=== PATIENT | female | born 1970 | race African-American/Black ===

== ENCOUNTER 2018-03-10 21:19 | Inpatient (IN) | payer MEDICARE, OTHER ==
[~2018-03-10 21:19] MED LIST: ISOVUE-370 76%-LOCM 1 ML ONE
[2018-03-10 21:49] LABS: BHCG - Serum Negative (NEGATIVE); Pregs Control Background? CLEAR/WHITE (CLR/WHITE); Pregs Control Bar Appear? YES (CONTROL BAR)
[2018-03-10 21:51] LABS: Hemoglobin 7.8 g/dL (12.0-16.0); Mean Corpuscular HGB CONC 30.6 g/dL (32.0-36.0); Mean Corpuscular Hemoglobin 18.1 pg (27.0-31.0); Mean Corpuscular Volume 59.1 fl (81.0-99.0); Mean Platelet Volume 5.8 fL (7.4-10.4); Platelet Count 472 thou/uL (130-400); RBC Distribution Width 19.1 % (11.5-14.5); Red Blood Cell (RBC) Count 4.34 mill/uL (4.20-5.40); White Blood Cell (WBC) Count 20.9 thou/uL (4.8-10.8)
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
[2018-03-10 22:08] LABS: ALT (SGPT) 11 U/L (8-55); AST (SGOT) 29 U/L (5-34); Albumin 4.4 g/dL (3.5-5.0); Alkaline Phosphatase 61 U/L (40-150); Anion Gap 17 mmol/L (10-20); BUN (Urea Nitrogen) 9 mg/dL (7.0-18.7); Bilirubin, Total 0.4 mg/dL (0.2-1.2); CK (CPK) 1667 U/L (29-168); Calc. Creatinine Clearance 0 mL/min (70-130); Calcium 9.6 mg/dL (7.8-10.44); Carbon Dioxide 20 mmol/L (22-29); Chloride 103 mmol/L (98-107); Estimated GFR-MDRD Greater than 90; Globulin 4.6 g/dL (2.4-3.5); Glucose 128 mg/dL (70-105); Potassium 3.3 mmol/L (3.5-5.1); Sodium 137 mmol/L (136-145)
[2018-03-10] MEDS ORDERED: Morphine 4 MG/ML VIAL ONE (22:16)
[2018-03-10] MEDS ORDERED: Ketorolac Tromethamine 30 MG/ML VIAL ONE (22:16)
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
[2018-03-10 22:58] LABS: Anisocytosis SLIGHT = 6-15 cells (100X) (0-5/hpf); Band 10 % (5-11); Elliptocytes SLIGHT = 2-5 cells (100X) (0-1/hpf); Lymphocytes 11 % (21-51); MDiff Complete? YES; Monocytes 1 % (0-10); Neutrophil 78 % (42-75); Reflex for Review?? YES
[2018-03-10] MEDS ORDERED: Ondansetron ODT 4 MG TAB PO PRN (22:59)
[2018-03-10] MEDS ORDERED: Dextrose 50% Abboject 50 ML SYRINGE SLOW IVP PRN (22:59)
[2018-03-10] MEDS ORDERED: Cyclobenzaprine 10 MG TAB PO PRN (22:59)
[2018-03-10] MEDS ORDERED: Dextrose 5% in Water 1,000 ML IV PRN (22:59)
[2018-03-10] MEDS ORDERED: Ondansetron HCl/PF 4 MG/2 ML Vial IVP PRN (22:59)
[2018-03-10] MEDS ORDERED: traMADol HCl 50 MG TAB PO PRN (23:01)
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
[2018-03-10] MEDS ORDERED: Cyclobenzaprine 10 MG TAB ONE (23:24)
[2018-03-10 23:39] LABS: Microcytosis SLIGHT = 6-15 cells (100X) (0-5/hpf)
[2018-03-10] MEDS ORDERED: Acetaminophen 500 MG TAB PO SCH (23:59)
[2018-03-10] MEDS ORDERED: traMADol HCl 50 MG TAB PO SCH (23:59)
[2018-03-11 03:06] LABS: Hemoglobin 7.1 g/dL (12.0-16.0); Mean Corpuscular HGB CONC 30.6 g/dL (32.0-36.0); Mean Corpuscular Volume 58.8 fl (81.0-99.0); RBC Distribution Width 19.2 % (11.5-14.5); Red Blood Cell (RBC) Count 3.93 mill/uL (4.20-5.40); White Blood Cell (WBC) Count 12.9 thou/uL (4.8-10.8)
[2018-03-11] MEDS ORDERED: Acetaminophen 500 MG TAB PO SCH (03:15)
[2018-03-11] MEDS ORDERED: traMADol HCl 50 MG TAB PO SCH (03:15)
[2018-03-11 03:23] LABS: Lactic Acid 1.6 mmol/L (0.5-2.2)
[2018-03-11 03:30] LABS: #Lymphocytes 0.6 thou/uL (1.20-3.40); #Monocytes 0.5 thou/uL (0.11-0.59); #Neutrophils 11.7 thou/uL (1.40-6.50); %Basophils 0.1 % (0.0-1.0); %Eosinophils 0.1 % (0.0-10.0); %Lymphocytes 4.7 % (21.0-51.0); %Monocytes 3.9 % (0.0-10.0); %Neutrophils 91.3 % (42.0-75.0); Anisocytosis SLIGHT = 6-15 cells (100X) (0-5/hpf); Elliptocytes SLIGHT = 2-5 cells (100X) (0-1/hpf); Hypochromia SLIGHT = 6-15 cells (100X) (0-5/hpf); MDiff Complete? YES; Mean Platelet Volume 6.5 fL (7.4-10.4); PLT Morphology Comment Appears Adequate; Platelet Count 379 thou/uL (130-400)
[2018-03-11 03:41] LABS: Anion Gap 14 mmol/L (10-20); BUN (Urea Nitrogen) 7 mg/dL (7.0-18.7); CK (CPK) 2502 U/L (29-168); Calc. Creatinine Clearance 0 mL/min (70-130); Calcium 8.8 mg/dL (7.8-10.44); Carbon Dioxide 23 mmol/L (22-29); Chloride 104 mmol/L (98-107); Estimated GFR-MDRD Greater than 90; Glucose 120 mg/dL (70-105); Magnesium 1.6 mg/dL (1.6-2.6); Phosphorus 2.2 mg/dL (2.3-4.7); Potassium 3.5 mmol/L (3.5-5.1); Sodium 137 mmol/L (136-145)
[2018-03-11 04:09] VITALS: BMI 22.6
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
[2018-03-11] MEDS ORDERED: Dextrose 5% in Water 1,000 ML IV SCH (08:00)
[2018-03-11] MEDS: Sodium Chloride 0.9% 1,000 ML IV SCH ×2 (08:00→15:06)
[2018-03-11 08:13] LABS: Iron 13 ug/dL (50-170); Iron Binding Capacity, Total 433 mcg/dL (265-497)
[2018-03-11 08:13] LABS: Iron 13 ug/dL (50-170); Iron Binding Capacity, Total 429 mcg/dL (265-497)
[2018-03-11] MEDS ORDERED: Thrombin 5000 UNITS/5 ML VIAL ONE (08:16)
[2018-03-11] MEDS ORDERED: Sodium Chloride 0.9% 10 ML ONE (08:20)
[2018-03-11 08:25] LABS: CKMB 23.1 ng/mL (0-6.6)
[2018-03-11] MEDS ORDERED: Potassium Phosphate 30 MMOL in Sodium Chloride 0.9% 500 ML IVPB SCH (08:30)
[2018-03-11] MEDS ORDERED: Magnesium Sulfate 3 GM in Sodium Chloride 0.9% 100 ML IVPB SCH (08:30)
[2018-03-11] MEDS ORDERED: CEFAZOLIN/Water 2 GM/20 ML SYRINGE ONE (08:55)
[2018-03-11] MEDS ORDERED: Fentanyl 250 MCG/5 ML VIAL ONE (08:57)
[2018-03-11] MEDS ORDERED: Famotidine/PF 20 mg/2ml Vial ONE (08:58)
[2018-03-11] MEDS ORDERED: Fentanyl 100 MCG/2 ML VIAL ONE (10:45)
[2018-03-11] MEDS: Ferrous Sulfate 325 MG TAB PO SCH ×2 (11:02→16:36)
[2018-03-11] MEDS: Acetaminophen 500 MG TAB PO SCH ×3 (11:04→20:57)
[2018-03-11] MEDS: Ascorbic Acid 500 mg Chewable Tablet PO SCH ×2 (11:04→20:58)
[2018-03-11] MEDS: traMADol HCl 50 MG TAB PO SCH ×3 (11:05→20:58)
[2018-03-11] MEDS ORDERED: Promethazine HCl 25 MG/ML VIAL IM PRN (12:02)
[2018-03-11] MEDS ORDERED: Promethazine HCl 25 MG/ML VIAL SLOW IVP PRN (12:02)
[2018-03-11] MEDS ORDERED: Ondansetron HCl/PF 4 MG/2 ML Vial IVP PRN (12:02)
[2018-03-11] MEDS ORDERED: Morphine Sulfate 2 MG/ML SYRINGE SLOW IVP PRN (12:02)
[2018-03-11] MEDS ORDERED: CEFAZOLIN 1 GM in Sodium Chloride 0.9% 100 ML IVPB SCH (14:00)
[2018-03-11 14:04] LABS: INR-International Normal Ratio 1.3; PTT 26.5 SEC (22.9-36.1); Prothrombin Time 16.5 SEC (12.0-14.7)
[2018-03-11] MEDS: CEFAZOLIN 1 GM, Syringe 2.5 ML in Sterile Water 7.5 ML SLOW IVP SCH (16:36)
[2018-03-11] MEDS ORDERED: Dexamethasone 20 MG/5 ML VIAL ONE (16:49)
[2018-03-11] MEDS ORDERED: ePHEDrine/0.9% NaCl/PF SYRINGE 50 mg/10 ml ONE (16:49)
[2018-03-11] MEDS ORDERED: PROPOFOL 200 MG/20 ML VIAL ONE (16:49)
[2018-03-11] MEDS ORDERED: Glycopyrrolate 0.2 MG/ML 5 ML SYRINGE ONE (16:49)
[2018-03-11] MEDS ORDERED: Lidocaine 1% PF 5 ML VIAL ONE (16:49)
[2018-03-11] MEDS ORDERED: Ketorolac Tromethamine 30 MG/ML VIAL ONE (16:49)
[2018-03-11] MEDS ORDERED: diphenhydrAMINE 50 MG/ML VIAL ONE (16:49)
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
[2018-03-12] MEDS: Sodium Chloride 0.9% 1,000 ML IV SCH ×3 (00:22→16:35)
[2018-03-12] MEDS: CEFAZOLIN 1 GM, Syringe 2.5 ML in Sterile Water 7.5 ML SLOW IVP SCH ×3 (00:28→16:33)
[2018-03-12] MEDS: Acetaminophen 500 MG TAB PO SCH ×4 (03:37→20:27)
[2018-03-12] MEDS: traMADol HCl 50 MG TAB PO SCH ×4 (03:37→20:27)
[2018-03-12 05:54] LABS: Anion Gap 12 mmol/L (10-20); BUN (Urea Nitrogen) 6 mg/dL (7.0-18.7); CK (CPK) 2257 U/L (29-168); Calc. Creatinine Clearance 94 mL/min (70-130); Calcium 8.3 mg/dL (7.8-10.44); Carbon Dioxide 23 mmol/L (22-29); Chloride 106 mmol/L (98-107); Estimated GFR-MDRD Greater than 90; Glucose 92 mg/dL (70-105); Magnesium 2.2 mg/dL (1.6-2.6); Phosphorus 2.2 mg/dL (2.3-4.7); Potassium 3.6 mmol/L (3.5-5.1); Sodium 137 mmol/L (136-145)
[2018-03-12 06:20] LABS: #Lymphocytes 0.9 thou/uL (1.20-3.40); #Monocytes 0.9 thou/uL (0.11-0.59); %Basophils 0.2 % (0.0-1.0); %Eosinophils 0.1 % (0.0-10.0); %Lymphocytes 9.2 % (21.0-51.0); %Monocytes 9.5 % (0.0-10.0); Anisocytosis SLIGHT = 6-15 cells (100X) (0-5/hpf); Elliptocytes SLIGHT = 2-5 cells (100X) (0-1/hpf); Hemoglobin 6.3 g/dL (12.0-16.0); Hypochromia SLIGHT = 6-15 cells (100X) (0-5/hpf); MDiff Complete? YES; Mean Corpuscular HGB CONC 30.4 g/dL (32.0-36.0); Mean Corpuscular Hemoglobin 18.2 pg (27.0-31.0); Mean Corpuscular Volume 59.9 fl (81.0-99.0); Mean Platelet Volume 6.7 fL (7.4-10.4); Microcytosis MODERATE=15-30 cells (100X) (0-5/hpf); Platelet Count 351 thou/uL (130-400); RBC Distribution Width 18.9 % (11.5-14.5); Red Blood Cell (RBC) Count 3.46 mill/uL (4.20-5.40); White Blood Cell (WBC) Count 9.9 thou/uL (4.8-10.8)
--- NOTE | 2018-03-12 09:01 | PRG ---
DATE OF SERVICE: 03/12/2018 SUBJECTIVE: Ms. Rees is postoperative day 1 from C6-C7 fracture dislocation repair with spinal cord injury. She states this morning she feels as if her neck pain has improved. She moves all 4 extrem ities antigravity. She moves her right side with more vigor compared to before surgery. I suspect s he has some component of myelopathy, but certainly this appears to be improved compared to preoperati vely. We will mobilize her today with physiatry and plan for inpatient rehabilitation hopefully. Fr om a metabolic standpoint, her hemoglobin is 6.3. She has chronic anemia and presented with hemoglob in of 7.8. We will give her 2 units of blood. Hopefully, this will improve in any orthostasis that patient may demonstrate.
[2018-03-12] MEDS: Ascorbic Acid 500 mg Chewable Tablet PO SCH ×3 (09:16→20:27)
[2018-03-12] MEDS: Ferrous Sulfate 325 MG TAB PO SCH ×2 (09:16→17:59)
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
[2018-03-12] MEDS ORDERED: Dexamethasone 4 MG in Sodium Chloride 0.9% 50 ML IVPB SCH (16:00)
[2018-03-12] MEDS: Dexamethasone 4 MG in Sodium Chloride 0.9% 50 ML IVPB SCH (18:16)
[2018-03-12 19:22] LABS: Reticulocyte Count 1.9 % (0.5-1.5)
[2018-03-12 19:40] LABS: Iron 21 ug/dL (50-170); Iron Binding Capacity, Total 359 mcg/dL (265-497)
--- NOTE | 2018-03-12 23:17 | OP ---
OR: 12. WOUND TYPE: Type 1 wound. SURGEON: Dr. Jurgen Harper. CLAM SHUCKER: Roe Phillips PA-C. Modifier 57 should be added to the surgery as my decision to operate was made on the day I saw the lawrence addison. PREPROCEDURE DIAGNOSES: Traumatic disruptions at C6-C7 with spinal cord compression in C7 fracture. POSTPROCEDURE DIAGNOSES: Traumatic disruptions at C6-C7 with spinal cord compression in C7 fracture. PROCEDURES: 1. Anterior C6-C7 diskectomy for decompression of spinal cord with preparation of the endplate and p lacement of interbody spacer packed with allograft for arthrodesis. 2. Placement of anterior cervical plate and screw fixation, C6-C7. 3. Use of operative microscope for microdissection. 4. Stabilization of cervical spine fracture. PROCEDURE IN DETAIL: After informed consent was obtained from patient, patient brought to OR 12. Pr oper patient pause and identification was carried out. She was placed under excellent endotracheal a nesthesia and maintaining cervical spine precautions. We identified a right anterior oblique annette. Right anterior neck to allow for approach to C6-C7 segment with disk disruption was obvious. This re gion was sterilely cleansed, prepared, and draped. Proper patient pause and identification was marcelino ed out. The wound was then opened with a combination of sharp, monopolar, and blunt dissection proce eded lateral to the tracheoesophageal bundle and medial to the right carotid sheath. There was signi ficant prevertebral edema as expected along with hematoma. We identified this disrupted disk segment at C6-C7 and the retrolisthesis of C6-C7. Retractors were placed and the microscope was brought in, distraction then occurred at C6-C7 and extruded disk material was quite obvious as it herniated vent rally distraction, this also resulted in satisfactory alignment of the vertebral bodies. The d isc was then removed all the way back to the dural tube. There was a very mild amount of thinning of the dura with a fractured portion of the endplate had been eroded into the dura due to the fracture. This weeped a small amount of CSF, although this stopped on its own and it was very difficult to id entify the true source of the CSF leak, but I conceded that is very likely small, as it stopped on it s own. I was satisfied again with a decompression of the cord and the C7 nerve roots in the alignmen t, and I was able to remove large pieces of disk from behind the C7 vertebral body. I then placed an interbody spacer with appropriate dimension, packed with allograft at the C6-C7 disk space and relea sed the distraction. The microscope was then removed and anterior cervical plate was affixed to the cervical spine. The final tightening occurred with satisfactory alignment of the C6-C7 segments. Co pious irrigation occurred throughout has been maximized in hemostasis. A small amount of DuraSeal th en placed in the region of where, I identified the leak although I saw no more CSF. A Valsalva maneu albertina was performed as well and again I saw no CSF egress. Again, I assured final tightening and follo wing this, meticulous hemostasis was completed. The wound was closed in anatomical layers over a davida in. The patient then emerged from anesthesia and we kept her in the cervical collar.
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
[2018-03-13] MEDS: CEFAZOLIN 1 GM, Syringe 2.5 ML in Sterile Water 7.5 ML SLOW IVP SCH ×2 (00:13→09:56)
[2018-03-13] MEDS: Sodium Chloride 0.9% 1,000 ML IV SCH ×3 (00:13→09:57)
[2018-03-13] MEDS: Dexamethasone 4 MG in Sodium Chloride 0.9% 50 ML IVPB SCH ×2 (01:38→09:56)
[2018-03-13] MEDS: traMADol HCl 50 MG TAB PO SCH ×2 (02:48→08:32)
[2018-03-13] MEDS: Acetaminophen 500 MG TAB PO SCH ×2 (02:48→08:32)
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
[2018-03-13 06:36] LABS: #Lymphocytes 0.6 thou/uL (1.20-3.40); #Monocytes 0.3 thou/uL (0.11-0.59); #Neutrophils 12.9 thou/uL (1.40-6.50); %Basophils 0.1 % (0.0-1.0); %Eosinophils 0.2 % (0.0-10.0); %Monocytes 1.9 % (0.0-10.0); %Neutrophils 93.8 % (42.0-75.0); Anisocytosis MODERATE=16-30 cells (100X) (0-5/hpf); Hemoglobin 9.3 g/dL (12.0-16.0); MDiff Complete? YES; Mean Corpuscular HGB CONC 31.5 g/dL (32.0-36.0); Mean Corpuscular Hemoglobin 20.6 pg (27.0-31.0); Mean Corpuscular Volume 65.5 fl (81.0-99.0); Mean Platelet Volume 6.5 fL (7.4-10.4); PLT Morphology Comment Appears Adequate; Platelet Count 368 thou/uL (130-400); Red Blood Cell (RBC) Count 4.51 mill/uL (4.20-5.40); White Blood Cell (WBC) Count 13.8 thou/uL (4.8-10.8)
[2018-03-13 08:09] LABS: Anion Gap 15 mmol/L (10-20); BUN (Urea Nitrogen) 7 mg/dL (7.0-18.7); CK (CPK) 1141 U/L (29-168); Calc. Creatinine Clearance 104 mL/min (70-130); Calcium 8.7 mg/dL (7.8-10.44); Carbon Dioxide 20 mmol/L (22-29); Chloride 103 mmol/L (98-107); Estimated GFR-MDRD Greater than 90; Glucose 108 mg/dL (70-105); Magnesium 2.1 mg/dL (1.6-2.6); Phosphorus 2.4 mg/dL (2.3-4.7); Potassium 3.9 mmol/L (3.5-5.1); Sodium 134 mmol/L (136-145)
[2018-03-13] MEDS: Ascorbic Acid 500 mg Chewable Tablet PO SCH ×2 (08:31→08:37)
[2018-03-13] MEDS: Ferrous Sulfate 325 MG TAB PO SCH (08:32)
[2018-03-13] MEDS ORDERED: Docusate 100 MG CAP PO SCH (09:00)
[2018-03-13] MEDS ORDERED: Polyethylene Glycol 3350 17 GM Packet PO SCH (09:00)
[2018-03-13 12:18] VITALS: BP 149/83; TEMP 98.5
--- NOTE | 2018-03-13 12:44 | PRG ---
DATE OF SERVICE: 03/13/2018 Ms. Rees is postoperative day 2 from C6-C7 fracture dislocation repair. She is moving her extremiti es symmetrically and appears to be doing very well this morning. She states her neck pain has certai nly improved compared to before surgery. Her drain output has been 0. Her dressing is dry. We will plan for dismissal today likely with a followup in a couple weeks in my clinic to check the wound.
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
== END 2018-03-13 13:25 | disposition home or self-care (01) | DRG 29 ==
LOC: ERS 21:19 → SURG B 22:59 → OBSVTOIN 03-12 13:47
PROVIDERS: ADMIT Surgery; ATTEND Surgery
PROC: 0RT30ZZ Resection of Cervical Vertebral Disc, Open Approach (ICD-10-PCS; principal; 2018-03-12)
PROC: 0RG10K0 Fusion of Cervical Vertebral Joint with Nonautologous Tissue Substitute, Anterior Approach, Anterior Column, Open Approach (ICD-10-PCS; 2018-03-12)
PROC: 30233N1 Transfusion of Nonautologous Red Blood Cells into Peripheral Vein, Percutaneous Approach (ICD-10-PCS; 2018-03-12)
DX: S14.106A Unspecified injury at C6 level of cervical spinal cord, initial encounter (principal); G96.0 Cerebrospinal fluid leak; E83.39 Other disorders of phosphorus metabolism; S12.500A Unspecified displaced fracture of sixth cervical vertebra, initial encounter for closed fracture; S12.600A Unspecified displaced fracture of seventh cervical vertebra, initial encounter for closed fracture; S14.107A Unspecified injury at C7 level of cervical spinal cord, initial encounter; S14.0XXA Concussion and edema of cervical spinal cord, initial encounter; D72.829 Elevated white blood cell count, unspecified; D50.9 Iron deficiency anemia, unspecified; R94.4 Abnormal results of kidney function studies; E87.6 Hypokalemia; M62.838 Other muscle spasm
CPT/HCPCS: 36415; 36430; 70450; 71045; 71260; 72125; 72141; 74177; 76001; 80048; 80053; 82550; 82553; 82728; 83540; 83550; 83605; 83735; 84100; 84703; 85025; 85046; 85060; 85610; 85730; 86850; 86900; 86901; 93005; 96361; 96374; 96375; A4216; C1713; C1776; G0390; G8978-GP-CI; G8979-GP-CI; G8980-GP-CI; J0131; J0690; J1100; J1200; J1885; J2001; J2270; J2704; J3010; J3475; J3490; J7050; L0174; L0200; P9016; Q0162; S0028

== ENCOUNTER 2018-05-09 14:30 | Outpatient (CLI) | payer MEDICARE, MEDICAID ==
--- NOTE | 2018-05-09 15:32 | RAD ---
FOUR VIEWS CERVICAL SPINE: Date: 05-09-18 Comparison: CT cervical spine, 03-10-18. History: Re-evaluate cervical spine following surgery. FINDINGS: Prior CT examination demonstrated multiple cervical spine fractures at the C6 and C7 levels. Anterior discectomy and fusion hardware is present at the C6-7 level. There is an intervertebral disc device at the C6-7 level. At C4-5 there is disc space narrowing, degenerative endplate change and anterior osteophyte formation . No evidence for hardware failure. Evaluation of the C6 and C7 fractures is limited on this examination and could be better assessed on follow up CT. Open mouth odontoid view demonstrates a normal appearing dens and C1-2 articulation. No prevertebral soft tissue swelling. IMPRESSION: Degenerative and post-operative changes of the cervical spine as detailed above. POS: [facility]
== END 2018-05-09 14:31 | disposition home or self-care (01) ==
LOC: TBSIIMAG 14:30
PROVIDERS: ATTEND Surgery
DX: S12.9XXA Fracture of neck, unspecified, initial encounter (principal); M47.892 Other spondylosis, cervical region; Z98.890 Other specified postprocedural states
CPT/HCPCS: 72040

== ENCOUNTER 2018-05-22 00:51 | Inpatient (IN) | payer MEDICARE, MEDICAID ==
[2018-05-22] MEDS ORDERED: Ondansetron ODT 4 MG TAB SL PRN (02:42)
[2018-05-22] MEDS ORDERED: Acetaminophen 325 MG TAB PO PRN (02:42)
[2018-05-22] MEDS ORDERED: Ondansetron HCl/PF 4 MG/2 ML Vial IVP PRN ×2 (02:42→09:29)
[2018-05-22 03:25] VITALS: BMI 21.2
[2018-05-22] MEDS: Piperacillin/Tazobactam 3.375 GM in Sodium Chloride 0.9% 100 ML IVPB SCH ×2 (03:36→09:00)
[2018-05-22] MEDS: Sodium Chloride 0.9% 1,000 ML IV SCH ×2 (03:36→13:48)
--- NOTE | 2018-05-22 04:53 | HP ---
CHIEF COMPLAINT: Abdominal pain. HISTORY OF PRESENT ILLNESS: Ms. Rees is a 48-year-old woman who presented to the emergency room wit h a 2-day history of abdominal pain. She was initially seen at an outside emergency room where initi al evaluation and imaging was performed. Her labs were unremarkable, but CT revealed small bowel obs truction due to an umbilical hernia. Attempts by the ER physician to reduce this were unsuccessful a nd she was transferred here for surgical evaluation. The patient states that the pain in her abdomen is centered on her umbilicus, nothing that she has tried at home has relieved it. She has thrown up multiple times, but has not seen any blood. She has not had any fevers or chills. An NG tube was p laced prior to my arrival, but she is still nauseated. PAST MEDICAL HISTORY: None. PAST SURGICAL HISTORY: , tubal , and cervical fixation of a spinal fracture in Feb. MEDICATIONS: She takes no medications as an outpatient. ALLERGIES: No known drug allergies. SOCIAL HISTORY: She does not smoke, drink, or use illicit drugs. REVIEW OF SYSTEMS: Ten-system review of systems is negative except per HPI. PHYSICAL EXAMINATION: VITAL SIGNS: Temperature 97.9, heart rate 78, respirations 18, 99% saturated on room air, blood pres sure 115/90. GENERAL: Reveals an ill-appearing woman holding an emesis basin and retching intermittently. She grier s an NG tube in place which has light green fluid in the tubing. HEENT: Unremarkable. NECK: Supple, without lymphadenopathy or thyroid nodules. She has a healed cervical incision on the right anterior aspect. HEART: Regular in its rate and rhythm without murmurs, rubs, or gallops. LUNGS: Clear to auscultation bilaterally. ABDOMEN: Very tender at the umbilicus with a firm hernia with gentle pressure. This hernia was able to be completely reduced into the abdomen, at which time the patient expressed significant relief of her abdominal pain. She is otherwise nontender in the abdomen and does not have any signs of perito nitis. No rigidity, rebound, or guarding. No palpable masses. She has a healed lower midline incis ion extending to above the level of the umbilicus, but no other hernias are palpable. EXTREMITIES: Warm and well perfused with normal pulses and no edema. NEUROLOGIC: No focal deficits. PSYCHIATRIC: Alert, oriented, and answers questions appropriately. X-RAY FINDINGS: CT images are not available since I was unable to open the disk, but the written rep ort is as per HPI. ASSESSMENT: Bowel obstruction due to umbilical hernia which was able to be successfully reduced at t he bedside. The patient expressed immediate relief of her abdominal pain and nausea and would leave her on bed rest and bowel rest today and likely take her to the operating room later today for a lapa roscopic repair of ventral incisional hernia. Inherent risks of ventral incisional hernia repair wit h mesh were discussed with the patient. These include, but are not limited to bleeding, infection, r isks of anesthesia, damage to nearby structures including bowel and blood vessels, need for additiona l procedures or open repair mesh infection, requiring mesh explantation and recurrence of hernia. Romero karen understands and accepts these risks and wishes to proceed. All of her questions were answered.
[2018-05-22] MEDS ORDERED: Bupivacaine HCl 0.25%/Epi 0.0005/PF 10 ML VIAL FS ONE (08:24)
[2018-05-22] MEDS ORDERED: Midazolam HCl 2 mg/2 ml Vial ONE (08:37)
[2018-05-22] MEDS ORDERED: Fentanyl 250 MCG/5 ML VIAL ONE (08:37)
[2018-05-22] MEDS ORDERED: Promethazine HCl 25 MG/ML VIAL IM PRN (09:29)
[2018-05-22] MEDS ORDERED: Promethazine HCl 25 MG/ML VIAL SLOW IVP PRN (09:29)
--- NOTE | 2018-05-22 09:48 | RAD ---
ABDOMEN ONE VIEW: History: Nasogastric tube placement. Small bowel obstruction. FINDINGS: Nondilated gas filled loops of small and large bowel throughout the abdomen are apparent. Nasogastric tube is coiled over the gastric fundus. Contrast within the urinary bladder is likely related to rec ent imaging. IMPRESSION: Nasogastric tube coiled over the gastric fundus. Perhaps advancing the catheter approximately 5-10 cm would result in better position within the gastric antrum and body. Nonspecific bowel gas pattern. POS: [facility]
[2018-05-22] MEDS ORDERED: Acetaminophen 1,000 MG in Premix Bag 1 BAG IVPB PRN (11:28)
[2018-05-22] MEDS ORDERED: Ketorolac Tromethamine 30 MG/ML VIAL IVP PRN (11:28)
[2018-05-22] MEDS ORDERED: HYDROcodone/Acetaminophen 5/325 mg Tablet PO PRN ×2 (11:30)
[2018-05-22] MEDS ORDERED: traMADol HCl 50 MG TAB PO PRN ×2 (11:31)
[2018-05-22] MEDS ORDERED: Ondansetron HCl/PF 4 MG/2 ML Vial SLOW IVP PRN (11:33)
[2018-05-22] MEDS ORDERED: Ketorolac Tromethamine 30 MG/ML VIAL ONE (12:56)
[2018-05-22] MEDS ORDERED: PHENYLEPHRINE-NS 100 MCG/ML 10 ML SYRINGE ONE (12:56)
[2018-05-22] MEDS ORDERED: Lidocaine 1% PF 5 ML VIAL ONE (12:56)
[2018-05-22] MEDS ORDERED: Ondansetron HCl/PF 4 MG/2 ML Vial ONE (12:56)
[2018-05-22] MEDS ORDERED: Succinylcholine Chloride 20 MG/ML 10 ml SYRINGE FS ONE (12:56)
[2018-05-22] MEDS ORDERED: Dexamethasone 20 MG/5 ML VIAL ONE (12:56)
[2018-05-22] MEDS ORDERED: PROPOFOL 200 MG/20 ML VIAL ONE (12:56)
[2018-05-22] MEDS ORDERED: Glycopyrrolate 0.2 MG/ML 5 ML SYRINGE ONE (12:56)
[2018-05-22] MEDS: D5 1/2 NS w/20 mEq KCL 1,000 ML IV SCH ×2 (13:49→18:25)
[2018-05-22] MEDS: Piperacillin/Tazobactam 3.375 GM, Admixture Fee 1 EACH in Sodium Chloride 0.9% 100 ML IVPB SCH ×2 (15:00→21:01)
[2018-05-22] MEDS: Famotidine/PF 20 mg/2ml Vial SLOW IVP SCH (21:00)
[2018-05-23] MEDS: D5 1/2 NS w/20 mEq KCL 1,000 ML IV SCH (06:00)
[2018-05-23 10:04] LABS: #Neutrophils 6.4 thou/uL (1.40-6.50); %Basophils 0.2 % (0.0-1.0); %Eosinophils 0.3 % (0.0-10.0); %Lymphocytes 11.6 % (21.0-51.0); %Monocytes 11.5 % (0.0-10.0); %Neutrophils 76.5 % (42.0-75.0); Hemoglobin 9.9 g/dL (12.0-16.0); Mean Corpuscular Hemoglobin 25.5 pg (27.0-31.0); Mean Corpuscular Volume 79.8 fL (78.0-98.0); Mean Platelet Volume 10.9 fL (7.4-10.4); Platelet Count 283 thou/uL (130-400); RBC Distribution Width 20.4 % (11.5-14.5); Red Blood Cell (RBC) Count 3.88 mill/uL (4.20-5.40); White Blood Cell (WBC) Count 8.4 thou/uL (4.8-10.8)
[2018-05-23 10:28] LABS: Hypochromia SLIGHT = 6-15 cells (100X) (0-5/hpf); MDiff Complete? YES; PLT Morphology Comment Appears Adequate; Polychromasia SLIGHT = 2-3 cells (100X) (0-2/hpf)
[2018-05-23 10:57] LABS: Anion Gap 11 mmol/L (10-20); BUN (Urea Nitrogen) 5 mg/dL (7.0-18.7); Calc. Creatinine Clearance 87 mL/min (70-130); Calcium 8.6 mg/dL (7.8-10.44); Carbon Dioxide 26 mmol/L (22-29); Chloride 101 mmol/L (98-107); Estimated GFR-MDRD Greater than 90; Glucose 110 mg/dL (70-105); Sodium 135 mmol/L (136-145)
[2018-05-23] MEDS: Famotidine/PF 20 mg/2ml Vial SLOW IVP SCH (10:57)
[2018-05-23 11:14] LABS: Potassium 2.9 mmol/L (3.5-5.1)
[2018-05-23] MEDS: Potassium Chloride 20 MEQ in Premix Bag 1 BAG IVPB SCH ×2 (13:02→15:08)
[2018-05-23 16:58] VITALS: BP 128/84; TEMP 98
--- NOTE | 2018-05-23 17:23 | PDOC.OP ---
Operative Note - Operative Note Operative Note: PROCEDURE: Laparoscopic ventral hernia repair and lysis of adhesions DATE OF PROCEDURE: 05/22/2018 SURGEON: Harley Sheridan M.D. PREOPERATIVE DIAGNOSES: Previously incarcerated umbilical hernia and small bowel obstruction. POSTOPERATIVE DIAGNOSIS: Previously incarcerated umbilical hernia containing omentum only, and small bowel obstruction due to an adhesive band. HISTORY: Patient with a 2 day history of abdominal pain nausea and vomiting centered around the umbilicus. She was evaluated in 2 emergency rooms and attempts made by the ER physicians to reduce her umbilical hernia were unsuccessful. CT showed the incarcerated hernia as well as a resulting small bowel obstruction. On my evaluation of her in our emergency room, I was able to successfully reduce her umbilical hernia and it has remained reduced since that time. Her nausea and abdominal pain improved immediately after reduction of her hernia. Recommendation was made to proceed with laparoscopic ventral hernia repair to prevent recurrent incarceration and obstruction. PROCEDURE IN DETAIL: After informed consent was obtained and appropriate preoperative antibiotics continued the patient was taken to the operating room she was placed in the supine position and general endotracheal anesthesia was administered. Her bladder was decompressed with a Blake catheter and she was prepped and draped in a standard sterile fashion. An NG tube had been previously placed in the emergency room. Local anesthesia was infused to the skin and subcutaneous tissues and the right subcostal area and a skin incision was made. The fascia was elevated and a Veress needle was placed into the abdominal cavity but insufflation pressures rapidly akira. A second attempt was made with the same results and it was felt the gas was being infused into the preperitoneal space. Therefore a [place] port was advanced under direct vision of the laparoscope into the abdominal cavity as gas was being insufflated through the port. The abdomen was able to be successfully entered with clear identification of all the layers of the abdominal wall and successful insufflation of the abdominal cavity. The clear trocar was removed leaving the sleeve in place and the right upper quadrant carefully examined. There were no adhesions in the vicinity of the incision and no evidence of Veress needle or trocar injury. There was some gas in the falciform consistent with preperitoneal insufflation. The abdominal cavity was carefully examined. The patient had dense midline adhesions but no adhesions in the lateral abdomen. Local anesthesia was infused to the skin and subcutaneous tissues at the right lower quadrant and a 5 mm trocar placed at that location. An additional dissecting trocar was placed in the left upper quadrant under direct vision of the laparoscope. The inflamed tissues which had been previously incarcerated in the umbilical hernia were easily identified and appeared to be indurated fatty tissue from the omentum. Some surrounding adhesions were taken down and this area was confirmed to be entirely omental with no small bowel adhesions. There were small bowel adhesions to the omentum further inferiorly and these adhesions were taken down sharply through the avascular plane freeing the small bowel from the omentum. At the small bowel loops were taken down a few adhesive bands were also noted and divided. One of these bands appeared to be the cause of the obstruction as it was causing the small bowel to kink at this location. The bowel proximal to the adhesive band was dilated and somewhat inflamed in appearance but appeared viable. This area was serially examined during the case and continuously improved in appearance. There is no evidence of stricture and the bowel contents were noted to pass into the previously decompressed distal bowel which distended appropriately. The omentum was completely dissected free of the anterior abdominal wall and several other small ventral incisional hernias identified inferior to the previously incarcerated hernia. 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 The dome of the uterus was dissected free of the anterior abdominal wall to allow adequate overlap of mesh for repair of her ventral incisional hernias, but the lower abdominal and pelvic adhesions were not taken down as there was no bowel involvement in this area and the adhesions were quite dense. The omentum was noted to be adherent to the pelvis and these adhesions were taken down through the avascular plane following which the omentum was able to be drawn into the upper abdomen and examined. The underlying small intestine was examined and no obstructing adhesions noted. Hemostasis was verified and the omentum was returned to its usual location in the mid abdomen. Attention was then turned to repair of the multiple ventral incisional hernias. The area of the hernias was 4 x 8 cm so a 10 x 15 cm mesh was selected to allow wide overlap. The mesh was clearly marked for orientation with the nonadhesive side marked to the placed facing the abdominal cavity and bowel. Upon sutures were placed superiorly inferiorly and at both lateral edges and the appropriate positions of these sutures was marked on the abdominal wall. The right lower quadrant trocar was replaced with a 12 mm trocar under direct laparoscopic vision and the mesh was dunked in saline, rolled and placed through the large trocar. It was then unrolled within the abdominal cavity and properly oriented. GraNee needle was used to secure the Ethibond sutures transfascial he at the superior, inferior, and both lateral edges with appropriate wide overlap of the ventral defects. A Secure Strap absorbable tacking device was then used to secure the mesh circumferentially. Hemostasis was again verified and the right lower quadrant trocar removed and the defects closed under direct vision with a 0 Vicryl suture in a [id number] manner. The left upper quadrant trocar was removed and hemostasis verified. Carbon dioxide gas was allowed to desufflate through the right upper quadrant trocar which was then removed. Skin incisions were closed with 4-0 subcuticular Monocryl sutures and Dermabond dressings were placed. The patient was extubated and taken to the recovery room in good condition. Estimated blood loss was minimal. There were no complications. There were no specimens.
== END 2018-05-23 18:42 | disposition home or self-care (01) | DRG 355 ==
LOC: ERS 00:51 → SURG A 01:30
PROVIDERS: ADMIT Surgery; ATTEND Surgery
PROC: 0WQF4ZZ Repair Abdominal Wall, Percutaneous Endoscopic Approach (ICD-10-PCS; principal; 2018-05-22)
DX: K42.0 Umbilical hernia with obstruction, without gangrene (principal)
CPT/HCPCS: 36415; 74018; 80048; 85025; 99285; A4216; J1100; J1885; J2001; J2250; J2405; J2543; J2704; J3010; J3480; J7050; S0028